=== PATIENT | male | born 1965 | race Caucasian/White ===

== ENCOUNTER 2021-08-08 13:12 | Emergency (ER) | payer OTHER ==
[~2021-08-08] VITALS: Ht 180.3 cm; Wt 103.4 kg
[~2021-08-08 13:12] MED LIST: ALEVE220 MG PO; BACTROBAN OINT NASAL; DOXYCYCLINE HY100 MG PO; DURICEF PO; HIBICLENS TP; ULTRACET PO
== END 2021-08-08 18:22 | disposition home or self-care (01) ==
LOC: ER 13:12
DX: M54.50 Low back pain, unspecified (principal)

== ENCOUNTER 2023-05-28 10:33 | Outpatient (CLI) | payer OTHER | END 2023-05-28 10:36 | disposition home or self-care (01) | LOC: RAD 10:33 | PROVIDERS: ATTEND Physical Medicine & Rehabilitation | DX: M25.551 Pain in right hip (principal) ==

== ENCOUNTER 2023-07-19 18:09 | Emergency (ER) | payer OTHER ==
[~2023-07-19] VITALS: Ht 180.3 cm; Wt 101.6 kg
== END 2023-07-20 04:12 | disposition home or self-care (01) ==
LOC: ER 18:10
DX: H60.8X2 Other otitis externa, left ear (principal); Z91.018 Allergy to other foods

== ENCOUNTER → 2023-10-31 | Emergency (ER) | payer OTHER | END | disposition left against medical advice (07) | LOC: ER 06:27 | DX: Z53.21 Procedure and treatment not carried out due to patient leaving prior to being seen by health care provider (principal) ==

== ENCOUNTER 2023-11-04 08:04 | Emergency (ER) | payer OTHER ==
[~2023-11-04] VITALS: Ht 180.3 cm; Wt 102.1 kg
[2023-11-04] MEDS ORDERED: MECLIZINE HCL 25 MG TABLET PO STA (08:45)
== END 2023-11-04 11:05 | disposition home or self-care (01) ==
LOC: ER
DX: R42 Dizziness and giddiness (principal); Z91.018 Allergy to other foods

== ENCOUNTER 2025-04-12 05:35 | Emergency (ER) | payer OTHER ==
[~2025-04-12] VITALS: Ht 180.3 cm; Wt 104.3 kg
[2025-04-12] MEDS ORDERED: 0.9 % SODIUM CHLORIDE 1,000 ML IV STA (06:18)
[2025-04-12] MEDS ORDERED: KETOROLAC TROMETHAMINE 30 MG VIAL IV STA (06:19)
[2025-04-12] MEDS ORDERED: MORPHINE SULFATE 4 MG/ML VIAL IV STA (06:20)
[2025-04-12] MEDS ORDERED: HYOSCYAMINE SULFATE 0.125 MG TAB.SUBL SL ONE (06:30)
[2025-04-12 07:49] LABS: BASO % 0.4 % (0.1-1.2); EOS # 0.02 (0.04-0.54); EOS % 0.2 % (0.7-7.0); LYMPH # 0.91 (1.18-3.74); LYMPH % 10.1 % (19.3-53.1); MEAN PLATELET VOLUME 11.80 fl (9.4-12.4); MONO # 0.50 (0.24-0.82); MONO % 5.6 % (4.7-12.5); NEUT # 7.49 (1.56-6.13); NEUT % 83.4 % (34.0-71.1); RED CELL DISTRIBUTION WIDTH 12.7 % (11.6-14.4)
[2025-04-12 08:18] LABS: INR 1.02
[2025-04-12 09:17] LABS: ALT/SGPT 30.0 U/L (12-78); AST/SGOT 15.0 U/L (15-37); BILIRUBIN TOTAL 0.52 mg/dL (0.3-1.2); BUN CREA RATIO 9.0 (7.0-25.0); CREATININE SERUM 0.88 mg/dL (0.70-1.30); GFR 88.04; GLOBULINA 3.0 G/DL (2.4-3.5); GLUCOSE FASTING 103.0 mg/dL (65-100); OSMOLALITY SERUM 285.0 MOSM/KG (275-295)
[2025-04-12] MEDS ORDERED: TAMSULOSIN HCL 0.4 MG CAP PO STA (10:01)
[2025-04-12 10:25] LABS: URINE APPEARANCE Cloudy; URINE BILIRRUBIN Negative (NEGATIVE); URINE BLOOD Large; URINE COLOR Dark Yellow; URINE GLUCOSE Negative (NEGATIVE); URINE KETONE Trace (NEGATIVE); URINE LEUKOCYTE Small; URINE NITRATE Negative; URINE PROTEIN 30 (NEGATIVE); URINE UROBILINOGEN 1.0 E.U./dl
[2025-04-12 10:35] LABS: URINE RBC LOADED /HPF
[2025-04-12 10:36] LABS: URINE EPITHELIAL CELLS 0-4 /HPF
[2025-04-12 10:37] LABS: URINE BACTERIA MODERATE; URINE MUCUS MODERATE
== END 2025-04-12 11:12 | disposition home or self-care (01) ==
LOC: ER 05:35
PROVIDERS: General Practice
DX: N20.9 Urinary calculus, unspecified (principal); N20.0 Calculus of kidney; R11.10 Vomiting, unspecified; R10.9 Unspecified abdominal pain; Z91.018 Allergy to other foods